=== PATIENT | female | born 1965 | race Asian ===

== ENCOUNTER 2019-02-24 10:36 | Outpatient (CLI) | payer OTHER | END 2019-02-24 22:31 | disposition home or self-care (01) | LOC: RESP 10:36 | DX: M21.372 Foot drop, left foot (principal) ==

== ENCOUNTER 2019-06-16 09:34 | Day surgery (SDC) | payer OTHER | END 2019-06-16 11:29 | disposition home or self-care (01) | LOC: OR 09:34 | PROC: 3E0R33Z Introduction of Anti-inflammatory into Spinal Canal, Percutaneous Approach (ICD-10-PCS; principal; 2019-06-16) | PROC: B01BYZZ Fluoroscopy of Spinal Cord using Other Contrast (ICD-10-PCS; 2019-06-16) | DX: M51.16 Intervertebral disc disorders with radiculopathy, lumbar region (principal) | CPT/HCPCS: J1020 ==

== ENCOUNTER 2019-07-21 08:45 | Day surgery (SDC) | payer OTHER ==
[~2019-07-21] VITALS: Ht 160 cm; Wt 120.2 kg
== END 2019-07-21 12:33 | disposition home or self-care (01) ==
LOC: OR 08:45
PROC: 3E0R33Z Introduction of Anti-inflammatory into Spinal Canal, Percutaneous Approach (ICD-10-PCS; principal; 2019-07-21)
PROC: B01BYZZ Fluoroscopy of Spinal Cord using Other Contrast (ICD-10-PCS; 2019-07-21)
DX: M51.16 Intervertebral disc disorders with radiculopathy, lumbar region (principal)
CPT/HCPCS: J1020